=== PATIENT | female | born 1995 | race Caucasian/White ===

== ENCOUNTER → 2024-01-20 | Outpatient (CLI) | payer BC ==
--- NOTE | 2024-01-20 11:36 | BD ---
EXAMINATION TYPE: Axial Bone Density DATE OF EXAM: 01/20/2024 CLINICAL HISTORY: 28 years old Female. ICD-10 CODE: M85.88 other disorder of bone density Height: 68.5" Weight: 282lbs FRAX RISK QUESTIONS: Alcohol (3 or more units per day): No Family History (Parent hip fracture): No Glucocorticoids (More than 3mos): No (Ex: prednisone, prednisolone, methylprednisolone, dexamethasone, and hydrocortisone). History of Fracture in Adulthood: No Secondary Osteoporosis: 1. Type 1 Diabetes: No 2. Hyperthyroidism: No 3. Menopause before 45: N/A 4. Malnutrition: No 5. Chronic liver disease: No Rheumatoid Arthritis: No Current Tobacco Use: No RISK FACTORS HISTORY OF: Hip Fracture (Right/Left): No Spine Fracture: No History of Wrist Fracture: No Surgery to Spine/Hip(right/left)/Wrist (right/left): No MEDICATIONS: Thyroid Medications: No Osteoporosis Medications: No EXAM MEASUREMENTS: Bone mineral densitometry was performed using the [employer] System. Bone mineral density as measured about the Lumbar spine is: ----- L1-L4(G/cm2): 1.099 T Score Values are as follows: ----- L1: -0.9 ----- L2: -0.7 ----- L3: -0.2 ----- L4: -1.1 ----- L1-L4: -0.7 Z Score Values are as follows: ----- L1: -2.1 ----- L2: -1.8 ----- L3: -1.4 ----- L4: -2.2 ----- L1-L4: -1.8 Baseline @MPH Bone mineral density about the R hip (g/cm2): 1.207 Bone mineral density about the L hip (g/cm2): 1.186 T Score values are as follows: -----R Neck: 0.7 -----L Neck: 0.6 -----R Total: 0.1 -----L Total: 0.0 Z Score values are as follows: -----R Neck: 1.6 -----L Neck: 1.4 -----R Total: 0.8 -----L Total: 0.7 Baseline @MPH FRAX%s: N/A patient is underage IMPRESSION: Osteopenia (T Score between -2.5 and -1). There is slightly increased risk of fracture and the patient may be considered for treatment. Re-Screen 2-5 years. NOTE: T-SCORE=SD OF THE YOUNG ADULT MEAN.
== END | disposition home or self-care (01) ==
LOC: RADBDWWP 07:18
PROVIDERS: ATTEND Obstetrics & Gynecology
DX: M85.88 Other specified disorders of bone density and structure, other site
CPT/HCPCS: 77080